=== PATIENT | female | born 1945 | race Caucasian/White ===

== ENCOUNTER → 2017-11-13 | Outpatient (CLI) | payer MEDICARE ==
[~2017-11-13] MED LIST: ALLO100T30 PO; ALLO100T64 PO; ATEN25TA PO; CEPH-368 PO; CETI10CA PO; ENOX30SY4 SQ; ERGO500017 PO; ESOM20CA PO; FLUO10CA13 PO; GABA-826 PO; GABA100C PO; GABA300C10 PO; GEMF600T3 PO; GLIP5TAB10 PO; HEPA50004 SQ; LEVO75TA5 PO; LOVA10TA PO; ONDA4TAB10 PO; OXYC-306 PO; PROM12.55 PO; PROM25AM6 PO; SEVE800T8 PO; TRAM-47 PO; TRAM50TA2 PO
== END ==
LOC: CFH 10:51
PROVIDERS: ATTEND Nurse Practitioner
DX: Z12.31 Encounter for screening mammogram for malignant neoplasm of breast (principal); E04.1 Nontoxic single thyroid nodule; Z85.3 Personal history of malignant neoplasm of breast
CPT/HCPCS: 76536; 77067

== ENCOUNTER → 2017-11-20 | Outpatient (CLI) | payer MEDICARE, OTHER | END | disposition home or self-care (01) | LOC: CFH 13:58 | PROVIDERS: ATTEND Nurse Practitioner | DX: N28.1 Cyst of kidney, acquired (principal); N20.2 Calculus of kidney with calculus of ureter; Q78.2 Osteopetrosis; Z90.49 Acquired absence of other specified parts of digestive tract; Z90.710 Acquired absence of both cervix and uterus | CPT/HCPCS: 74176 ==

== ENCOUNTER → 2017-12-11 | Outpatient (CLI) | payer MEDICARE | END | disposition home or self-care (01) | LOC: CFH 15:31 | PROVIDERS: ATTEND Nurse Practitioner | DX: M17.12 Unilateral primary osteoarthritis, left knee (principal); N20.0 Calculus of kidney; N28.89 Other specified disorders of kidney and ureter | CPT/HCPCS: 76770 ==

== ENCOUNTER → 2018-02-28 | Outpatient (CLI) | payer MEDICARE | END | disposition home or self-care (01) | LOC: RAD 13:54 | PROVIDERS: ATTEND Urology | DX: N20.0 Calculus of kidney (principal); N28.89 Other specified disorders of kidney and ureter; D49.512 Neoplasm of unspecified behavior of left kidney | CPT/HCPCS: 76770 ==

== ENCOUNTER → 2018-05-08 | Outpatient (CLI) | payer MEDICARE ==
[~2018-05-08] MED LIST changes: +ALPR-475 PO; +CINA30TA2 PO; +COLC0.6T37 PO; -GEMF600T3 PO; +GEMF600T4 PO; +LOSA25TA6 PO
[2018-05-08 16:28] LABS: BASOPHILS # (AUTO) 0.02 x10^3/uL (0-0.1); BASOPHILS % (AUTO) 0 % (0-1); EOSINOPHILS # (AUTO) 0.28 x10^3/uL (0-0.4); EOSINOPHILS % (AUTO) 5 % (1-7); LYMPHOCYTES # (AUTO) 0.91 x10^3/uL (1-3.4); LYMPHOCYTES % (AUTO) 15 % (22-44); MD NO; MEAN CORPUSCULAR HEMOGLOBIN 33.8 pg (27.0-34.8); MEAN CORPUSCULAR HGB CONC 33.6 g/dL (32.4-35.8); MEAN CORPUSCULAR VOLUME 100.7 fL (80-100); MEAN PLATELET VOLUME 6.9 fL (7.4-10.4); MONOCYTES # (AUTO) 0.28 x10^3/uL (0.2-0.8); MONOCYTES % (AUTO) 5 % (2-9); NEUTROPHILS # (AUTO) 4.42 x10^3/uL (1.8-6.8); NEUTROPHILS % (AUTO) 75 % (42-75); PLATELET COUNT 169 x10^3/uL (130-400); RED BLOOD COUNT 3.49 x10^6/uL (3.82-5.3)
[2018-05-08 16:41] LABS: ALBUMIN 3.3 g/dL (3.4-5.0); ANION GAP 7 mmol/L (5-15); CALCIUM 8.5 mg/dL (8.5-10.1); CHLORIDE 92 mmol/L (98-107)
[2018-05-08 16:45] LABS: ALANINE AMINOTRANSFERASE 19 U/L (12-78); ALKALINE PHOSPHATASE 124 U/L (45-117); BILIRUBIN,TOTAL 0.7 mg/dL (0.2-1.0); CREATININE 4.67 mg/dL (0.55-1.02); TOTAL PROTEIN 7.2 g/dL (6.4-8.2)
== END | disposition home or self-care (01) ==
LOC: STAR 15:00
PROVIDERS: ATTEND Urology
DX: Z01.818 Encounter for other preprocedural examination (principal); N28.89 Other specified disorders of kidney and ureter
CPT/HCPCS: 36415; 80053; 85025; 93005

== ENCOUNTER 2018-05-16 08:49 | Inpatient (IN) | payer MEDICARE ==
[~2018-05-16] VITALS: Ht 170.2 cm; Wt 103.3 kg
[~2018-05-16 08:49] MED LIST changes: +BUPIVACAINE/PF-EPI 0.25% 1:200K ONE; +INDIGO CARMINE 0.8%, 5ML ONE; +THROMBIN 5,000 UNIT VIAL TP ONE
[2018-05-16] MEDS ORDERED: LACTATED RINGERS 1,000 ML IV SCH (09:01)
[2018-05-16] MEDS ORDERED: APREPITANT 40 MG CAPSULE PO STA (09:21)
[2018-05-16] MEDS ORDERED: PROPOFOL 10 MG/ML, 20ML ONE ×3 (11:52→13:50)
[2018-05-16] MEDS ORDERED: PHENYLEPHRINE 10 MG/ML ONE (11:59)
[2018-05-16] MEDS ORDERED: CEFTRIAXONE PMX 1GM/50ML 50 ML IV SCH (12:30)
[2018-05-16] MEDS ORDERED: DEXTROSE 50%, 50ML SYRINGE IVPush PRN (12:30)
[2018-05-16] MEDS ORDERED: GLUCAGON 1 MG IM PRN (12:30)
[2018-05-16] MEDS ORDERED: DEXTROSE 4 GM TAB.CHEW PO PRN (12:30)
[2018-05-16] MEDS ORDERED: FENTANYL PF 100 MCG/2ML ONE ×2 (13:19→16:46)
[2018-05-16] MEDS ORDERED: SUGAMMADEX 200 MG/2 ML IVPush ONE (13:58)
[2018-05-16] MEDS ORDERED: HYDROcodone/APAP 7.5-325MG/15ML UDC PO PRN (14:00)
[2018-05-16] MEDS ORDERED: OXYcodone 5 MG/5 ML ORAL.SOL UDC PO PRN (14:00)
[2018-05-16] MEDS ORDERED: FENTANYL PF 100 MCG/2ML IV PRN (14:00)
[2018-05-16] MEDS ORDERED: ROCURONIUM 10MG/ML,5ML ONE (14:13)
[2018-05-16] MEDS ORDERED: EPHEDRINE 50 MG/ML, 1ML ONE (14:13)
[2018-05-16] MEDS ORDERED: CEFAZOLIN 1,000 MG ONE (14:13)
[2018-05-16] MEDS ORDERED: FENTANYL PF 250 MCG/5ML ONE (14:47)
[2018-05-16] MEDS ORDERED: GLYCOPYRROLATE 0.4 MG/2 ML, 2ML ONE (15:53)
[2018-05-16] MEDS ORDERED: NEOSTIGMINE 1 MG/ML, 10ML ONE ×2 (15:53)
[2018-05-16] MEDS: INSULIN LISPRO 100 UNITS/ML, PEN SQ-INSULIN SCH ×2 (16:00→21:00)
[2018-05-16] MEDS ORDERED: HYDROmorphone 2 MG/ML, 1ML ONE (16:47)
[2018-05-16] MEDS ORDERED: OXYcodone 5 MG/5 ML ORAL.SOL UDC ONE (16:47)
[2018-05-16] MEDS: HYDROmorphone 1 MG/ML, 1ML IV PRN ×2 (16:50→16:59)
[2018-05-16 18:47] VITALS: BP 90/35
[2018-05-16] MEDS ORDERED: ONDANSETRON 2MG/ML, 2ML IV PRN (19:00)
[2018-05-16] MEDS: DOXYCYCLINE 100 MG in DEXTROSE 5% 250 ML IV SCH (20:00)
[2018-05-16] MEDS: D5%-0.45NACL+KCL 20MEQ 1,000 ML IV SCH (20:04)
[2018-05-16] MEDS: CEFTRIAXONE 1,000 MG in SODIUM CHLORIDE 0.9% 50 ML IV SCH (20:04)
[2018-05-16] MEDS: SODIUM CHLORIDE FLUSH 10ML SYR IVF SCH (21:00)
[2018-05-17] MEDS: ACETAMINOPHEN 325 MG TABLET PO PRN (01:09)
[2018-05-17 01:29] VITALS: BP 107/52
[2018-05-17] MEDS: OXYcodone IR 5MG TABLET PO PRN ×5 (01:59→20:32)
[2018-05-17 04:31] VITALS: BP 114/45
[2018-05-17 06:02] LABS: CHLORIDE 93 mmol/L (98-107)
[2018-05-17 06:09] LABS: ANION GAP 11 mmol/L (5-15); CREATININE 7.41 mg/dL (0.55-1.02)
[2018-05-17] MEDS: D5%-0.45NACL+KCL 20MEQ 1,000 ML IV SCH (06:10)
[2018-05-17] MEDS: INSULIN LISPRO 100 UNITS/ML, PEN SQ-INSULIN SCH ×4 (06:15→20:27)
[2018-05-17] MEDS ORDERED: ENOXAPARIN 30 MG/0.3 ML SQ SCH (08:00)
[2018-05-17] MEDS: ENOXAPARIN 30 MG/0.3 ML SQ SCH (08:49)
[2018-05-17] MEDS: SODIUM CHLORIDE FLUSH 10ML SYR IVF SCH ×2 (09:00→20:07)
[2018-05-17] MEDS: DOXYCYCLINE 100 MG in DEXTROSE 5% 250 ML IV SCH ×2 (09:25→21:31)
[2018-05-17 09:43] VITALS: BP 108/61
[2018-05-17 16:36] VITALS: BP 109/47
[2018-05-17 18:51] VITALS: BP 115/50
[2018-05-17] MEDS: CEFTRIAXONE 1,000 MG in SODIUM CHLORIDE 0.9% 50 ML IV SCH (20:07)
[2018-05-18 01:12] VITALS: BP 108/49
[2018-05-18 04:29] VITALS: BP 123/48
[2018-05-18] MEDS: OXYcodone IR 5MG TABLET PO PRN ×3 (04:51→13:40)
[2018-05-18 04:58] LABS: BASOPHILS # (AUTO) 0.02 x10^3/uL (0-0.1); BASOPHILS % (AUTO) 0 % (0-1); EOSINOPHILS # (AUTO) 0.28 x10^3/uL (0-0.4); EOSINOPHILS % (AUTO) 5 % (1-7); LYMPHOCYTES # (AUTO) 0.59 x10^3/uL (1-3.4); LYMPHOCYTES % (AUTO) 11 % (22-44); MD NO; MEAN CORPUSCULAR HEMOGLOBIN 33.4 pg (27.0-34.8); MEAN CORPUSCULAR VOLUME 101.3 fL (80-100); MEAN PLATELET VOLUME 7.2 fL (7.4-10.4); MONOCYTES # (AUTO) 0.34 x10^3/uL (0.2-0.8); MONOCYTES % (AUTO) 7 % (2-9); NEUTROPHILS # (AUTO) 4.04 x10^3/uL (1.8-6.8); NEUTROPHILS % (AUTO) 77 % (42-75); PLATELET COUNT 119 x10^3/uL (130-400); RED BLOOD COUNT 2.91 x10^6/uL (3.82-5.3); RED CELL DISTRIBUTION WIDTH 17.2 % (9.6-15.2)
[2018-05-18 05:08] LABS: ALBUMIN 2.5 g/dL (3.4-5.0); ANION GAP 8 mmol/L (5-15); CALCIUM 8.1 mg/dL (8.5-10.1); CHLORIDE 96 mmol/L (98-107)
[2018-05-18 05:12] LABS: % IRON SATURATION 10 % (20-55); ALKALINE PHOSPHATASE 123 U/L (45-117); BILIRUBIN,TOTAL 0.7 mg/dL (0.2-1.0); CREATININE 5.95 mg/dL (0.55-1.02); IRON LEVEL 20 mcg/dL (50-170); TOTAL IRON BINDING CAPACITY 193 mcg/dL (250-450)
[2018-05-18 05:28] LABS: ALANINE AMINOTRANSFERASE 8 U/L (12-78)
[2018-05-18] MEDS: INSULIN LISPRO 100 UNITS/ML, PEN SQ-INSULIN SCH ×4 (07:00→21:00)
[2018-05-18 07:42] VITALS: BP 112/50
[2018-05-18] MEDS ORDERED: DARBEPOETIN 40 MCG/ML SQ SCH (08:00)
[2018-05-18] MEDS: ENOXAPARIN 30 MG/0.3 ML SQ SCH (08:20)
[2018-05-18] MEDS: DOXYCYCLINE 100 MG in DEXTROSE 5% 250 ML IV SCH ×2 (08:20→22:52)
[2018-05-18] MEDS: ACETAMINOPHEN 325 MG TABLET PO PRN (08:22)
[2018-05-18] MEDS: SODIUM CHLORIDE FLUSH 10ML SYR IVF SCH ×2 (09:26→22:52)
[2018-05-18 14:17] VITALS: BP 103/69
[2018-05-18 19:39] VITALS: BP 118/47
[2018-05-18] MEDS: CEFTRIAXONE 1,000 MG in SODIUM CHLORIDE 0.9% 50 ML IV SCH (20:42)
[2018-05-19] MEDS: OXYcodone IR 5MG TABLET PO PRN (00:07)
[2018-05-19] MEDS: ONDANSETRON ODT 4 MG PO PRN ×3 (00:17→21:44)
[2018-05-19 00:57] VITALS: BP 134/58
[2018-05-19 06:27] LABS: BASOPHILS # (AUTO) 0.01 x10^3/uL (0-0.1); BASOPHILS % (AUTO) 0 % (0-1); EOSINOPHILS # (AUTO) 0.23 x10^3/uL (0-0.4); EOSINOPHILS % (AUTO) 4 % (1-7); LYMPHOCYTES # (AUTO) 0.42 x10^3/uL (1-3.4); LYMPHOCYTES % (AUTO) 7 % (22-44); MD NO; MEAN CORPUSCULAR HEMOGLOBIN 33.5 pg (27.0-34.8); MEAN CORPUSCULAR HGB CONC 33.9 g/dL (32.4-35.8); MEAN CORPUSCULAR VOLUME 98.9 fL (80-100); MEAN PLATELET VOLUME 7.1 fL (7.4-10.4); MONOCYTES # (AUTO) 0.31 x10^3/uL (0.2-0.8); MONOCYTES % (AUTO) 5 % (2-9); NEUTROPHILS # (AUTO) 4.89 x10^3/uL (1.8-6.8); NEUTROPHILS % (AUTO) 84 % (42-75); PLATELET COUNT 129 x10^3/uL (130-400); RED BLOOD COUNT 3.05 x10^6/uL (3.82-5.3); RED CELL DISTRIBUTION WIDTH 16.2 % (9.6-15.2)
[2018-05-19 06:33] LABS: CHLORIDE 91 mmol/L (98-107)
[2018-05-19 06:42] LABS: ALANINE AMINOTRANSFERASE < 6 U/L (12-78); ALBUMIN 2.5 g/dL (3.4-5.0); ALKALINE PHOSPHATASE 136 U/L (45-117); ANION GAP 9 mmol/L (5-15); BILIRUBIN,TOTAL 0.5 mg/dL (0.2-1.0); CALCIUM 8.7 mg/dL (8.5-10.1); CREATININE 7.88 mg/dL (0.55-1.02)
[2018-05-19] MEDS: INSULIN LISPRO 100 UNITS/ML, PEN SQ-INSULIN SCH ×4 (07:00→21:00)
[2018-05-19] MEDS: DOXYCYCLINE 100 MG in DEXTROSE 5% 250 ML IV SCH ×2 (08:10→21:31)
[2018-05-19] MEDS: ENOXAPARIN 30 MG/0.3 ML SQ SCH (08:10)
[2018-05-19] MEDS: SODIUM CHLORIDE FLUSH 10ML SYR IVF SCH ×2 (08:11→21:00)
[2018-05-19 08:12] VITALS: BP 155/67
[2018-05-19] MEDS ORDERED: SODIUM CHLORIDE 0.9% 1,000 ML IV SCH (11:30)
[2018-05-19] MEDS: SODIUM CHLORIDE 0.9% 1,000 ML IV SCH ×3 (11:36→22:37)
[2018-05-19 13:10] VITALS: BP 133/70
[2018-05-19 15:32] LABS: HEMOGLOBIN A1C 5.4 % (4.2-6.3)
[2018-05-19] MEDS: CEFTRIAXONE 1,000 MG in SODIUM CHLORIDE 0.9% 50 ML IV SCH (19:58)
[2018-05-19 20:10] VITALS: BP 140/64
[2018-05-19] MEDS: LOSARTAN 25MG TABLET PO SCH (21:00)
[2018-05-19] MEDS: LOVASTATIN 10 MG TABLET PO SCH (21:00)
[2018-05-19] MEDS ORDERED: ZOLPIDEM 5MG TABLET PO PRN (21:00)
[2018-05-20 03:30] VITALS: BP 141/64
[2018-05-20] MEDS: INSULIN LISPRO 100 UNITS/ML, PEN SQ-INSULIN SCH ×4 (06:20→21:00)
[2018-05-20 06:26] LABS: BASOPHILS # (AUTO) 0.03 x10^3/uL (0-0.1); BASOPHILS % (AUTO) 1 % (0-1); EOSINOPHILS # (AUTO) 0.39 x10^3/uL (0-0.4); EOSINOPHILS % (AUTO) 7 % (1-7); LYMPHOCYTES # (AUTO) 0.49 x10^3/uL (1-3.4); LYMPHOCYTES % (AUTO) 9 % (22-44); MD NO; MEAN CORPUSCULAR HEMOGLOBIN 33.8 pg (27.0-34.8); MEAN CORPUSCULAR HGB CONC 33.7 g/dL (32.4-35.8); MEAN CORPUSCULAR VOLUME 100.3 fL (80-100); MEAN PLATELET VOLUME 7.4 fL (7.4-10.4); MONOCYTES # (AUTO) 0.34 x10^3/uL (0.2-0.8); MONOCYTES % (AUTO) 6 % (2-9); NEUTROPHILS # (AUTO) 4.49 x10^3/uL (1.8-6.8); NEUTROPHILS % (AUTO) 78 % (42-75); PLATELET COUNT 136 x10^3/uL (130-400); RED BLOOD COUNT 3.07 x10^6/uL (3.82-5.3)
[2018-05-20 06:33] LABS: ANION GAP 10 mmol/L (5-15); CALCIUM 8.6 mg/dL (8.5-10.1); CHLORIDE 91 mmol/L (98-107); CREATININE 9.16 mg/dL (0.55-1.02)
[2018-05-20 07:01] VITALS: BP 81/43
[2018-05-20 07:07] VITALS: BP 142/66
[2018-05-20] MEDS ORDERED: SCOPOLAMINE PATCH, 1.5MG PATCH.TD72 TD ONE (08:00)
[2018-05-20] MEDS: ENOXAPARIN 30 MG/0.3 ML SQ SCH (08:00)
[2018-05-20] MEDS: SODIUM CHLORIDE FLUSH 10ML SYR IVF SCH ×2 (09:00→21:31)
[2018-05-20] MEDS: CETIRIZINE 10 MG TABLET PO SCH (09:00)
[2018-05-20] MEDS: GABAPENTIN 300 MG CAPSULE PO SCH (09:00)
[2018-05-20] MEDS: FLUOXETINE 10 MG CAP PO SCH (09:00)
[2018-05-20] MEDS: SODIUM CHLORIDE 0.9% 1,000 ML IV SCH ×2 (11:34→19:34)
[2018-05-20 12:44] VITALS: BP 132/51
[2018-05-20] MEDS: DOXYCYCLINE 100 MG in DEXTROSE 5% 250 ML IV SCH (12:56)
[2018-05-20 19:58] VITALS: BP 141/72
[2018-05-20] MEDS: LOSARTAN 25MG TABLET PO SCH (21:31)
[2018-05-20] MEDS: CEFDINIR 300 MG CAPSULE PO SCH (21:31)
[2018-05-20] MEDS: DOXYCYCLINE 100MG TABLET PO SCH (21:31)
[2018-05-20] MEDS: LOVASTATIN 10 MG TABLET PO SCH (21:35)
[2018-05-21 02:17] VITALS: BP 137/57
[2018-05-21] MEDS: SODIUM CHLORIDE 0.9% 1,000 ML IV SCH (02:51)
[2018-05-21 05:44] LABS: ALBUMIN 2.4 g/dL (3.4-5.0); ANION GAP 10 mmol/L (5-15); CALCIUM 8.4 mg/dL (8.5-10.1); CHLORIDE 96 mmol/L (98-107); CREATININE 6.31 mg/dL (0.55-1.02)
[2018-05-21 05:51] LABS: BASOPHILS # (AUTO) 0.02 x10^3/uL (0-0.1); BASOPHILS % (AUTO) 0 % (0-1); EOSINOPHILS # (AUTO) 0.28 x10^3/uL (0-0.4); EOSINOPHILS % (AUTO) 5 % (1-7); LYMPHOCYTES # (AUTO) 0.49 x10^3/uL (1-3.4); LYMPHOCYTES % (AUTO) 8 % (22-44); MD NO; MEAN CORPUSCULAR HEMOGLOBIN 33.6 pg (27.0-34.8); MEAN CORPUSCULAR HGB CONC 33.7 g/dL (32.4-35.8); MEAN CORPUSCULAR VOLUME 99.9 fL (80-100); MEAN PLATELET VOLUME 7.2 fL (7.4-10.4); MONOCYTES # (AUTO) 0.38 x10^3/uL (0.2-0.8); MONOCYTES % (AUTO) 7 % (2-9); NEUTROPHILS # (AUTO) 4.67 x10^3/uL (1.8-6.8); NEUTROPHILS % (AUTO) 80 % (42-75); PLATELET COUNT 157 x10^3/uL (130-400); RED BLOOD COUNT 3.02 x10^6/uL (3.82-5.3); RED CELL DISTRIBUTION WIDTH 15.9 % (9.6-15.2)
[2018-05-21] MEDS ORDERED: GLUCAGON 1 MG IM PRN (07:00)
[2018-05-21] MEDS: INSULIN LISPRO 100 UNITS/ML, PEN SQ-INSULIN SCH ×2 (07:00→11:00)
[2018-05-21] MEDS ORDERED: DEXTROSE 50%, 50ML SYRINGE IVPush PRN (07:00)
[2018-05-21] MEDS ORDERED: DEXTROSE 4 GM TAB.CHEW PO PRN (07:00)
[2018-05-21 07:24] VITALS: BP 135/56
[2018-05-21] MEDS: ENOXAPARIN 30 MG/0.3 ML SQ SCH (08:26)
[2018-05-21] MEDS: GABAPENTIN 300 MG CAPSULE PO SCH (08:26)
[2018-05-21] MEDS: CETIRIZINE 10 MG TABLET PO SCH (08:26)
[2018-05-21] MEDS: CEFDINIR 300 MG CAPSULE PO SCH (08:26)
[2018-05-21] MEDS: DOXYCYCLINE 100MG TABLET PO SCH ×2 (08:26→20:56)
[2018-05-21] MEDS: FLUOXETINE 10 MG CAP PO SCH (08:27)
[2018-05-21] MEDS: SODIUM CHLORIDE FLUSH 10ML SYR IVF SCH ×4 (08:32→20:56)
[2018-05-21] MEDS ORDERED: CEFD300C37 PO (12:08)
[2018-05-21] MEDS ORDERED: DOXY100T PO (12:08)
[2018-05-21 13:22] VITALS: BP 109/44
[2018-05-21 20:13] VITALS: BP 116/54
[2018-05-21] MEDS: LOVASTATIN 10 MG TABLET PO SCH (20:56)
[2018-05-21] MEDS: LOSARTAN 25MG TABLET PO SCH (20:56)
[2018-05-22 01:27] VITALS: BP 148/77
[2018-05-22 04:39] LABS: ALBUMIN 2.5 g/dL (3.4-5.0); ANION GAP 11 mmol/L (5-15); CALCIUM 8.7 mg/dL (8.5-10.1); CHLORIDE 97 mmol/L (98-107); CREATININE 8.05 mg/dL (0.55-1.02)
[2018-05-22 04:43] LABS: BASOPHILS # (AUTO) 0.03 x10^3/uL (0-0.1); BASOPHILS % (AUTO) 1 % (0-1); EOSINOPHILS # (AUTO) 0.38 x10^3/uL (0-0.4); EOSINOPHILS % (AUTO) 6 % (1-7); LYMPHOCYTES # (AUTO) 0.66 x10^3/uL (1-3.4); LYMPHOCYTES % (AUTO) 11 % (22-44); MD NO; MEAN CORPUSCULAR HEMOGLOBIN 33.9 pg (27.0-34.8); MEAN CORPUSCULAR HGB CONC 33.6 g/dL (32.4-35.8); MEAN CORPUSCULAR VOLUME 100.9 fL (80-100); MEAN PLATELET VOLUME 7.2 fL (7.4-10.4); MONOCYTES # (AUTO) 0.46 x10^3/uL (0.2-0.8); MONOCYTES % (AUTO) 8 % (2-9); NEUTROPHILS # (AUTO) 4.53 x10^3/uL (1.8-6.8); NEUTROPHILS % (AUTO) 75 % (42-75); PLATELET COUNT 162 x10^3/uL (130-400); RED BLOOD COUNT 3.11 x10^6/uL (3.82-5.3); RED CELL DISTRIBUTION WIDTH 15.8 % (9.6-15.2)
[2018-05-22] MEDS: SODIUM CHLORIDE FLUSH 10ML SYR IVF SCH ×2 (09:00)
[2018-05-22 12:30] VITALS: BP 99/57
[2018-05-22] MEDS: CEFDINIR 300 MG CAPSULE PO SCH (13:07)
[2018-05-22] MEDS: GABAPENTIN 300 MG CAPSULE PO SCH (13:07)
[2018-05-22] MEDS: DOXYCYCLINE 100MG TABLET PO SCH (13:07)
[2018-05-22] MEDS: ENOXAPARIN 30 MG/0.3 ML SQ SCH (13:07)
[2018-05-22] MEDS: FLUOXETINE 10 MG CAP PO SCH (13:08)
[2018-05-22] MEDS: CETIRIZINE 10 MG TABLET PO SCH (13:08)
[2018-05-22] MEDS ORDERED: ERGOCALCIFEROL 50,000 UNIT CAPSULE PO SCH (15:00)
== END 2018-05-22 18:33 | DRG 656 ==
LOC: ORIP 08:49 → 4NOR 18:10
PROVIDERS: ADMIT Urology; ATTEND Family Medicine
PROC: 05HN33Z Insertion of Infusion Device into Left Internal Jugular Vein, Percutaneous Approach (ICD-10-PCS; 2018-05-16)
PROC: 0TT14ZZ Resection of Left Kidney, Percutaneous Endoscopic Approach (ICD-10-PCS; principal; 2018-05-16 11:00)
PROC: 5A1D70Z Performance of Urinary Filtration, Intermittent, Less than 6 Hours Per Day (ICD-10-PCS; 2018-05-17)
PROC: 5A1D70Z Performance of Urinary Filtration, Intermittent, Less than 6 Hours Per Day (ICD-10-PCS; 2018-05-20)
PROC: 5A1D70Z Performance of Urinary Filtration, Intermittent, Less than 6 Hours Per Day (ICD-10-PCS; 2018-05-22)
DX: C64.2 Malignant neoplasm of left kidney, except renal pelvis (principal); N18.6 End stage renal disease; E46 Unspecified protein-calorie malnutrition; E87.1 Hypo-osmolality and hyponatremia; I12.0 Hypertensive chronic kidney disease with stage 5 chronic kidney disease or end stage renal disease; K56.7 Ileus, unspecified; L03.116 Cellulitis of left lower limb; J96.11 Chronic respiratory failure with hypoxia; M19.90 Unspecified osteoarthritis, unspecified site; K21.9 Gastro-esophageal reflux disease without esophagitis; E78.00 Pure hypercholesterolemia, unspecified; E03.9 Hypothyroidism, unspecified; E11.42 Type 2 diabetes mellitus with diabetic polyneuropathy; E11.22 Type 2 diabetes mellitus with diabetic chronic kidney disease; D63.1 Anemia in chronic kidney disease; E66.9 Obesity, unspecified; E78.5 Hyperlipidemia, unspecified; N25.0 Renal osteodystrophy; S81.802A Unspecified open wound, left lower leg, initial encounter; X58.XXXA Exposure to other specified factors, initial encounter; Z80.0 Family history of malignant neoplasm of digestive organs; Z80.1 Family history of malignant neoplasm of trachea, bronchus and lung; Z80.8 Family history of malignant neoplasm of other organs or systems; Z90.49 Acquired absence of other specified parts of digestive tract; Z90.710 Acquired absence of both cervix and uterus; Z91.19 Patient's noncompliance with other medical treatment and regimen; Z99.2 Dependence on renal dialysis; Z88.0 Allergy status to penicillin; Z68.35 Body mass index [BMI] 35.0-35.9, adult; Z88.2 Allergy status to sulfonamides; Z88.5 Allergy status to narcotic agent; Z88.6 Allergy status to analgesic agent; Z88.8 Allergy status to other drugs, medicaments and biological substances; Y93.89 Activity, other specified; Y92.098 Other place in other non-institutional residence as the place of occurrence of the external cause; Y99.8 Other external cause status; Z79.84 Long term (current) use of oral hypoglycemic drugs
CPT/HCPCS: 36415; 71045; 74018; 80048; 80053; 82040; 82728; 82947; 82962; 83036; 83540; 83550; 83735; 84100; 84550; 85014; 85018; 85025; 86705; 86706; 86850; 86900; 87070; 87077; 87186; 87205; 87340; 88307; C1729; G0378; J0690; J0696; J0881; J1170; J1650; J2405; J2704; J2710; J3010; J7060; J8501; Q0162; C1760; J2370; J3480; J7030; J7120

== ENCOUNTER 2018-05-31 10:45 | Day surgery (SDC) | payer MEDICARE ==
[~2018-05-31] VITALS: Ht 172.7 cm; Wt 101.5 kg
[~2018-05-31 10:45] MED LIST changes: -BUPIVACAINE/PF-EPI 0.25% 1:200K ONE; +CEFD300C37 PO; +DOXY100T PO; -INDIGO CARMINE 0.8%, 5ML ONE; -THROMBIN 5,000 UNIT VIAL TP ONE
[2018-05-31] MEDS ORDERED: SODIUM CHLORIDE 0.9% 1,000 ML IV SCH (11:12)
[2018-05-31] MEDS ORDERED: GABAPENTIN 300 MG CAPSULE PO ONE (11:30)
[2018-05-31] MEDS ORDERED: ONDANSETRON ODT 8 MG PO ONE (11:30)
[2018-05-31] MEDS ORDERED: ACETAMINOPHEN 500 MG TABLET PO ONE (11:30)
[2018-05-31 11:53] LABS: BASOPHILS # (AUTO) 0.02 x10^3/uL (0-0.1); BASOPHILS % (AUTO) 0 % (0-1); EOSINOPHILS # (AUTO) 0.26 x10^3/uL (0-0.4); EOSINOPHILS % (AUTO) 3 % (1-7); LYMPHOCYTES # (AUTO) 0.84 x10^3/uL (1-3.4); LYMPHOCYTES % (AUTO) 11 % (22-44); MD NO; MEAN CORPUSCULAR HEMOGLOBIN 33.3 pg (27.0-34.8); MEAN CORPUSCULAR VOLUME 101.1 fL (80-100); MEAN PLATELET VOLUME 7.3 fL (7.4-10.4); MONOCYTES # (AUTO) 0.39 x10^3/uL (0.2-0.8); MONOCYTES % (AUTO) 5 % (2-9); NEUTROPHILS # (AUTO) 6.39 x10^3/uL (1.8-6.8); NEUTROPHILS % (AUTO) 81 % (42-75); PLATELET COUNT 181 x10^3/uL (130-400); RED BLOOD COUNT 3.26 x10^6/uL (3.82-5.3)
[2018-05-31] MEDS ORDERED: ACETAMINOPHEN 500 MG TABLET ONE (12:00)
[2018-05-31] MEDS ORDERED: GABAPENTIN 300 MG CAPSULE ONE (12:00)
[2018-05-31] MEDS ORDERED: ONDANSETRON ODT 8 MG ONE (12:00)
[2018-05-31 12:07] VITALS: BP 142/71
[2018-05-31] MEDS ORDERED: SCOPOLAMINE PATCH, 1.5MG PATCH.TD72 TD ONE ×2 (12:18→12:30)
[2018-05-31] MEDS ORDERED: FENTANYL PF 100 MCG/2ML ONE (12:18)
[2018-05-31] MEDS ORDERED: BUPIVACAINE/PF-EPI 0.5% 1:200K ONE (12:43)
[2018-05-31] MEDS ORDERED: HEPARIN 1,000 UNITS/ML, 10ML ONE (12:43)
[2018-05-31] MEDS ORDERED: PROTAMINE SULFATE 10 MG/ML, 5ML ONE (12:43)
[2018-05-31] MEDS ORDERED: THROMBIN 20,000 UNIT VIAL TP ONE (12:43)
[2018-05-31] MEDS ORDERED: LIDOCAINE/PF 2%-EPI 1:200K, 10ML ONE (13:02)
[2018-05-31] MEDS ORDERED: MIDAZOLAM 1 MG/ML, 2ML ONE (13:13)
[2018-05-31] MEDS ORDERED: CEFAZOLIN 1,000 MG ONE ×2 (13:53)
[2018-05-31] MEDS ORDERED: PROPOFOL 10 MG/ML, 20ML ONE (13:53)
[2018-05-31] MEDS ORDERED: FENTANYL PF 100 MCG/2ML IV PRN (14:00)
[2018-05-31] MEDS ORDERED: PROMETHAZINE 25 MG SUPP PR PRN (14:00)
[2018-05-31] MEDS ORDERED: OXYcodone 5 MG/5 ML ORAL.SOL UDC PO PRN (14:00)
[2018-05-31] MEDS ORDERED: hydrALAzine 20 MG/ML, 1ML IV PRN (14:00)
== END 2018-05-31 16:40 | disposition home or self-care (01) ==
LOC: OUT 10:45
PROVIDERS: ATTEND Surgery
DX: T82.848A Pain due to vascular prosthetic devices, implants and grafts, initial encounter (principal); Y83.8 Other surgical procedures as the cause of abnormal reaction of the patient, or of later complication, without mention of misadventure at the time of the procedure; Y92.89 Other specified places as the place of occurrence of the external cause; D64.9 Anemia, unspecified; I12.0 Hypertensive chronic kidney disease with stage 5 chronic kidney disease or end stage renal disease; N18.6 End stage renal disease; G47.33 Obstructive sleep apnea (adult) (pediatric); E66.9 Obesity, unspecified; E78.5 Hyperlipidemia, unspecified; F41.9 Anxiety disorder, unspecified; F17.210 Nicotine dependence, cigarettes, uncomplicated; Z90.49 Acquired absence of other specified parts of digestive tract; Z90.710 Acquired absence of both cervix and uterus; Z98.890 Other specified postprocedural states; Z88.6 Allergy status to analgesic agent; Z88.5 Allergy status to narcotic agent; Z88.0 Allergy status to penicillin; Z79.899 Other long term (current) drug therapy
CPT/HCPCS: 36415; 37607; 80047; 85025; J0690; J1644; J2250; J2704; J3010; J7030; Q0162; J2720; J3490

== ENCOUNTER → 2018-10-03 | Outpatient (CLI) | payer OTHER ==
[~2018-10-03] MED LIST changes: -GEMF600T4 PO; +GEMF600T8 PO; +LOSA25TA25 PO; -LOSA25TA6 PO
== END | disposition home or self-care (01) ==
LOC: CFH 11:10
PROVIDERS: ATTEND Nurse Practitioner Family
DX: M85.88 Other specified disorders of bone density and structure, other site (principal); Z78.0 Asymptomatic menopausal state
CPT/HCPCS: 77080

== ENCOUNTER → 2018-11-22 | Outpatient (CLI) | payer OTHER | END | disposition home or self-care (01) | LOC: CFH 14:19 | PROVIDERS: ATTEND Nurse Practitioner | DX: Z12.31 Encounter for screening mammogram for malignant neoplasm of breast (principal); C64.9 Malignant neoplasm of unspecified kidney, except renal pelvis; N28.89 Other specified disorders of kidney and ureter; Z90.11 Acquired absence of right breast and nipple | CPT/HCPCS: 74018; 77067 ==